=== PATIENT | female | born 1980 | race African-American/Black ===

== ENCOUNTER → 2017-07-04 | Outpatient (CLI) | payer OTHER ==
[2014-01-29 15:04] VITALS: BP 132/76
[~2017-07-04] MED LIST: HYDR-971 PO; LABE100T3 PO; NAPR500T4 PO
--- NOTE | 2017-07-04 15:46 | RAD ---
Clinical Indication: Discrepancy of uterine size and dates. Technique: Study is dated July 04, 2017. No comparison study is available. Transabdominal imaging was performed. Findings: There is a single intrauterine gestation in cephalic presentation. The placenta is anterior in location without evidence of placental previa. Cervix appears long and closed. RUTH ANN measured 11.3 cm. This value is within normal limits. Biometrical data is as follows: BPD = 7.33 cm, with a corresponding gestational age of 29 weeks 3 days. HC = 26.91 cm, with a corresponding gestational age of 29 weeks 2 days. AC = 27.52 cm, with a corresponding gestational age of 31 weeks 4 days. FL = 5.56 cm, with a corresponding gestational age of 29 weeks 2 days. Ratio of head circumference to abdominal circumference is 0.98. Cephalic index is 80 %. Overall, the estimated sonographic gestational age is 29 weeks 6 days for an estimated date of delivery of September 13, 2017. Patient states clinically they are 19 weeks 5 days. Estimated weight is 1580 g. survey was performed. A four chamber heart is identified with positive cardiac activity. The estimated heart rate is 145 beats per minute. There is a three-vessel cord with cord insertion visualized. stomach and urinary bladder are identified. Both kidneys are visualized. Evaluation of the spine, intracranial contents, and maxillofacial region is limited. Visualized portions are within normal limits. IMPRESSION: 1. Single intrauterine gestation with estimated sonographic gestational age of 29 weeks 6 days. 2. Limited evaluation of the intracranial contents, maxillofacial region, and spine. Short-term limited OB follow-up can be considered.
== END | disposition home or self-care (01) ==
LOC: US 13:46
PROVIDERS: ATTEND Obstetrics & Gynecology
DX: O26.843 Uterine size-date discrepancy, third trimester (principal); O09.523 Supervision of elderly multigravida, third trimester; Z3A.29 29 weeks gestation of pregnancy
CPT/HCPCS: 76805

== ENCOUNTER 2017-08-29 15:43 | Observation (INO) | payer OTHER ==
[2017-08-29] MEDS ORDERED: IV RINGERS,LACTATED 1000ML 1,000 ML IV ×2 (15:53)
[2017-08-29 16:18] LABS: POC GLUCOSE 105 mg/dL (70-99)
== END 2017-08-29 17:50 | disposition home or self-care (01) ==
LOC: 3 SO LND 15:43
PROVIDERS: Obstetrics & Gynecology
DX: Z34.93 Encounter for supervision of normal pregnancy, unspecified, third trimester (principal); Z3A.37 37 weeks gestation of pregnancy
CPT/HCPCS: 59025; 82962; G0378; G0379

== ENCOUNTER 2017-09-05 15:14 | Observation (INO) | payer OTHER ==
[2017-09-05 16:36] LABS: ADD MAN DIFF? NO
[2017-09-05 16:41] LABS: BASO % 1 % (0-3); EOS # 0.1 x10^3/uL (0.0-0.7); EOS % 2 % (0-3); HEMATOCRIT 37.8 % (36.0-47.0); HEMOGLOBIN 12.8 g/dL (12.0-15.5); LYMPH # 2.3 x10^3/uL (1.0-4.8); LYMPH % 29 % (24-48); MEAN CORPUSCULAR HEMOGLOBIN 30 pg (25-35); MEAN CORPUSCULAR HGB CONC 34 g/dL (31-37); MEAN CORPUSCULAR VOLUME 87 fL (79-100); MONO # 0.7 x10^3/uL (0.0-1.1); MONO % 8 % (0-9); NEUT # 4.9 x10^3uL (1.8-7.7); NEUT % 61 % (31-73); PLATELET COUNT 130 x10^3/uL (140-400); RED BLOOD COUNT 4.34 x10^6/uL (3.50-5.40); RED CELL DISTRIBUTION WIDTH 13.6 % (11.5-14.5); WHITE BLOOD COUNT 8.1 x10^3/uL (4.0-11.0)
[2017-09-05 17:41] LABS: ALBUMIN 2.1 g/dL (3.4-5.0); ALBUMIN/GLOBULIN RATIO 0.5 (1.0-1.7); ALK PHOS 113 U/L (46-116); ALT (SGPT) 17 U/L (14-59); ANION GAP 10 (6-14); AST (SGOT) 23 U/L (15-37); BLOOD UREA NITROGEN 11 mg/dL (7-20); BUN/CREATININE RATIO 16 (6-20); CALCIUM 8.8 mg/dL (8.5-10.1); CARBON DIOXIDE 22 mmol/L (21-32); CHLORIDE 106 mmol/L (98-107); CREATININE 0.7 mg/dL (0.6-1.0); GFR 113.3; GLUCOSE 118 mg/dL (70-99); POTASSIUM 3.3 mmol/L (3.5-5.1); SODIUM 138 mmol/L (136-145); TOTAL BILIRUBIN 0.2 mg/dL (0.2-1.0); TOTAL PROTEIN 6.4 g/dL (6.4-8.2)
== END 2017-09-05 18:30 | disposition home or self-care (01) ==
LOC: 3 SO LND 15:14
DX: Z34.93 Encounter for supervision of normal pregnancy, unspecified, third trimester (principal); Z3A.38 38 weeks gestation of pregnancy
CPT/HCPCS: 36415; 59025; 76815; 76819; 80053; 85025; G0378; G0379

== ENCOUNTER 2017-09-12 15:31 | Inpatient (IN) | payer OTHER ==
[2017-09-12 16:40] LABS: ADD MAN DIFF? NO
[2017-09-12 16:47] LABS: BASO % 0 % (0-3); EOS # 0.1 x10^3/uL (0.0-0.7); EOS % 1 % (0-3); HEMATOCRIT 39.8 % (36.0-47.0); HEMOGLOBIN 13.5 g/dL (12.0-15.5); LYMPH # 2.4 x10^3/uL (1.0-4.8); LYMPH % 30 % (24-48); MEAN CORPUSCULAR HEMOGLOBIN 29 pg (25-35); MEAN CORPUSCULAR HGB CONC 34 g/dL (31-37); MEAN CORPUSCULAR VOLUME 87 fL (79-100); MONO # 0.7 x10^3/uL (0.0-1.1); MONO % 9 % (0-9); NEUT # 4.8 x10^3uL (1.8-7.7); NEUT % 59 % (31-73); PLATELET COUNT 116 x10^3/uL (140-400); RED BLOOD COUNT 4.58 x10^6/uL (3.50-5.40); RED CELL DISTRIBUTION WIDTH 13.6 % (11.5-14.5); WHITE BLOOD COUNT 8.1 x10^3/uL (4.0-11.0)
[2017-09-12 17:06] LABS: ALBUMIN 2.4 g/dL (3.4-5.0); ALBUMIN/GLOBULIN RATIO 0.5 (1.0-1.7); ALK PHOS 132 U/L (46-116); ALT (SGPT) 60 U/L (14-59); ANION GAP 9 (6-14); AST (SGOT) 68 U/L (15-37); BLOOD UREA NITROGEN 12 mg/dL (7-20); BUN/CREATININE RATIO 20 (6-20); CALCIUM 9.2 mg/dL (8.5-10.1); CARBON DIOXIDE 23 mmol/L (21-32); CHLORIDE 104 mmol/L (98-107); CREATININE 0.6 mg/dL (0.6-1.0); GFR 135.4; GLUCOSE 69 mg/dL (70-99); POTASSIUM 4.2 mmol/L (3.5-5.1); SODIUM 136 mmol/L (136-145); TOTAL BILIRUBIN 0.4 mg/dL (0.2-1.0); TOTAL PROTEIN 7.1 g/dL (6.4-8.2)
[2017-09-12] MEDS ORDERED: fentaNYL PF VIAL 100 MCG/2 ML VIAL IV (19:15)
[2017-09-12] MEDS ORDERED: TERBUTALINE 1 MG/ML VIAL. SQ (19:15)
[2017-09-12] MEDS ORDERED: 0.9 % SODIUM CHLORIDE 10 ML DISP.SYRIN. IV (19:15)
[2017-09-12] MEDS ORDERED: ONDANSETRON PF 4 MG/2 ML VIAL. IV (19:15)
[2017-09-12] MEDS ORDERED: LIDOCAINE 1% PF 30 ML VIAL. INJ (19:15)
[2017-09-12] MEDS ORDERED: BUTORPHANOL 2 MG/ML VIAL. IV ×2 (19:15)
[2017-09-12] MEDS: IV RINGERS,LACTATED 1000ML 1,000 ML IV (19:24)
[2017-09-12] MEDS: PENICILLIN G K 5,000,000 UNIT in IV DEXTROSE 5% 100 ML IV (19:30)
[2017-09-12] MEDS: ACETAMINOPHEN 500 MG TABLET PO (22:49)
[2017-09-13] MEDS: IV RINGERS,LACTATED 1000ML 1,000 ML IV ×3 (07:16→19:11)
[2017-09-13] MEDS: OXYTOCIN 30 UNIT/500 ML PREMIX 500 ML IV ×2 (07:22→18:41)
[2017-09-13] MEDS: PENICILLIN G K 2,500,000 UNIT in IV DEXTROSE 5% 50 ML IV ×7 (07:30→23:30)
[2017-09-13] MEDS: fentaNYL PF VIAL 100 MCG/2 ML VIAL IV (15:53)
[2017-09-13] MEDS: CARBOPROST TROMETHAMINE 250 MCG/ML AMPUL IM (16:00)
[2017-09-13] MEDS: miSOPROStol 25 MCG TABLET VG (16:00)
[2017-09-13] MEDS: METHYLERGONOVINE MALEATE 0.2 MG/ML VIAL. IM (16:00)
[2017-09-13] MEDS: miSOPROStol 200MCG TAB 200 MCG TABLET PR (17:30)
[2017-09-13] MEDS ORDERED: MAG HYDROX/ALUMINUM HYD/SIMETH 30 ML ORAL.SUSP PO (18:15)
[2017-09-13] MEDS ORDERED: 0.9 % SODIUM CHLORIDE 10 ML DISP.SYRIN. IV (18:15)
[2017-09-13] MEDS ORDERED: ACETAMINOPHEN 325 MG TABLET. PO (18:15)
[2017-09-13] MEDS ORDERED: IBUPROFEN 800 MG TABLET. PO (18:15)
[2017-09-13] MEDS ORDERED: BENZOCAINE 20% TOPICAL AEROSOL SPRAY 57GM CAN. TP (18:15)
[2017-09-13] MEDS ORDERED: diphenhydrAMINE HCL 25 MG CAPSULE PO (18:15)
[2017-09-13] MEDS ORDERED: PHENYLEPH/MINERAL OIL/PETROLAT RECTAL OINTMENT 28GM TUBE. RC (18:15)
[2017-09-13] MEDS ORDERED: MAGNESIUM HYDROXIDE 2,400 MG/30 ML ORAL.SUSP. PO (18:15)
[2017-09-13] MEDS ORDERED: ZOLPIDEM 5 MG TABLET. PO (18:15)
[2017-09-13] MEDS ORDERED: SIMETHICONE 80 MG TAB.CHEW PO (18:15)
[2017-09-13] MEDS ORDERED: MMR per PROTOCOL. MC (18:15)
[2017-09-13] MEDS ORDERED: OXYTOCIN 30 UNIT/500 ML PREMIX 500 ML IV (18:15)
[2017-09-13] MEDS ORDERED: HYDROCORTISONE 1% TOPICAL OINTMENT 30GM TUBE. TP (18:15)
[2017-09-13] MEDS: IBUPROFEN 800 MG TABLET. PO (19:24)
[2017-09-14] MEDS: DOCUSATE SODIUM 100 MG CAPSULE. PO ×2 (00:12→08:11)
[2017-09-14] MEDS: oxyCODONE/APAP 5/325 1 TAB TABLET PO ×4 (00:14→18:31)
[2017-09-14 05:14] LABS: ADD MAN DIFF? NO
[2017-09-14 05:35] LABS: BASO % 0 % (0-3); EOS # 0.1 x10^3/uL (0.0-0.7); EOS % 1 % (0-3); HEMATOCRIT 38.7 % (36.0-47.0); HEMOGLOBIN 12.8 g/dL (12.0-15.5); LYMPH # 3.2 x10^3/uL (1.0-4.8); LYMPH % 21 % (24-48); MEAN CORPUSCULAR HEMOGLOBIN 29 pg (25-35); MEAN CORPUSCULAR HGB CONC 33 g/dL (31-37); MEAN CORPUSCULAR VOLUME 88 fL (79-100); MONO # 1.6 x10^3/uL (0.0-1.1); MONO % 11 % (0-9); NEUT # 10.1 x10^3uL (1.8-7.7); NEUT % 67 % (31-73); PLATELET COUNT 114 x10^3/uL (140-400); RED CELL DISTRIBUTION WIDTH 13.9 % (11.5-14.5); WHITE BLOOD COUNT 14.9 x10^3/uL (4.0-11.0)
[2017-09-14 06:20] LABS: RPR Non Reactive (Non Reactive)
[2017-09-14] MEDS: FERROUS SULFATE 325 MG TABLET. PO (08:00)
[2017-09-14] MEDS: IBUPROFEN 800 MG TABLET. PO ×2 (08:12→19:45)
[2017-09-14] MEDS: METHYLERGONOVINE MALEATE 0.2 MG TABLET PO ×2 (13:23→21:22)
[2017-09-14] MEDS: OXYTOCIN 30 UNIT/500 ML PREMIX 500 ML IV (14:09)
[2017-09-14] MEDS ORDERED: OXYTOCIN 30 UNIT/500 ML PREMIX 500 ML IV (14:15)
[2017-09-14 15:45] LABS: HEMATOCRIT 36.6 % (36.0-47.0); HEMOGLOBIN 12.1 g/dL (12.0-15.5); MEAN CORPUSCULAR HEMOGLOBIN 29 pg (25-35); MEAN CORPUSCULAR HGB CONC 33 g/dL (31-37); MEAN CORPUSCULAR VOLUME 87 fL (79-100); PLATELET COUNT 111 x10^3/uL (140-400); RED BLOOD COUNT 4.18 x10^6/uL (3.50-5.40); RED CELL DISTRIBUTION WIDTH 14.2 % (11.5-14.5); WHITE BLOOD COUNT 13.3 x10^3/uL (4.0-11.0)
[2017-09-15] MEDS: IBUPROFEN 800 MG TABLET. PO ×2 (04:41→14:47)
[2017-09-15] MEDS: METHYLERGONOVINE MALEATE 0.2 MG TABLET PO (10:00)
[2017-09-15] MEDS: DOCUSATE SODIUM 100 MG CAPSULE. PO (10:01)
== END 2017-09-15 18:04 | disposition home or self-care (01) | DRG 775 ==
LOC: 3 SO LND 15:31 → 3 NORTH 09-13 21:07
PROC: 10E0XZZ Delivery of Products of Conception, External Approach (ICD-10-PCS; principal; 2017-09-13)
PROC: 3E0P7VZ Introduction of Hormone into Female Reproductive, Via Natural or Artificial Opening (ICD-10-PCS; 2017-09-13)
DX: O13.4 Gestational [pregnancy-induced] hypertension without significant proteinuria, complicating childbirth (principal); O24.429 Gestational diabetes mellitus in childbirth, unspecified control; Z37.0 Single live birth; Z3A.40 40 weeks gestation of pregnancy
CPT/HCPCS: 36415; 76815; 80053; 85025; 85027; 86593; 86850; 86900; 86901; G0378; J2540; J2590; J3010; J7120

== ENCOUNTER 2017-11-24 12:52 | Emergency (ER) | payer OTHER | END 2017-11-24 13:51 | disposition home or self-care (01) | LOC: ER 12:52 | DX: B00.9 Herpesviral infection, unspecified (principal) | CPT/HCPCS: 99283 ==

== ENCOUNTER 2018-06-30 11:18 | Emergency (ER) | payer SELFPAY ==
[~2018-06-30] VITALS: Ht 152.4 cm; Wt 86.2 kg
[~2018-06-30 11:18] MED LIST changes: +ACYC5CRE2 TP; +HYDR-3164 PO; -HYDR-971 PO; +IBUP-1060 PO; -LABE100T3 PO; +LABE100T5 PO; +NAPR-514 PO; -NAPR500T4 PO; +VALA10005 PO
[2018-06-30 11:20] VITALS: BP 197/92
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
[2018-06-30] MEDS ORDERED: TRAM50TA PO (12:00)
[2018-06-30] MEDS ORDERED: METH-37 PO (12:00)
[2018-06-30] MEDS: NAPROXEN 500 MG TABLET PO STA (12:03)
[2018-06-30] MEDS: CYCLOBENZAPRINE 10 MG TABLET. PO ONE (12:03)
[2018-06-30] MEDS: HYDROcodone/APAP 5/325MG 1 TAB TABLET PO ONE (12:03)
== END 2018-06-30 12:35 | disposition home or self-care (01) ==
LOC: ER 11:18
DX: M54.5 Low back pain (principal); M79.10 Myalgia, unspecified site; G89.11 Acute pain due to trauma; V49.59XA Passenger injured in collision with other motor vehicles in traffic accident, initial encounter; Y92.488 Other paved roadways as the place of occurrence of the external cause; Y93.89 Activity, other specified; Y99.8 Other external cause status
CPT/HCPCS: 99284

== ENCOUNTER 2019-02-26 14:40 | Emergency (ER) | payer OTHER ==
[~2019-02-26] VITALS: Ht 160 cm; Wt 86.2 kg
[~2019-02-26 14:40] MED LIST changes: +METH-37 PO; +TRAM50TA PO
[2019-02-26 16:12] LABS: BASO # 0.1 x10^3/uL (0.0-0.2); BASO % 1 % (0-3); EOS % 0 % (0-3); HEMATOCRIT 38.6 % (36.0-47.0); HEMOGLOBIN 13.1 g/dL (12.0-15.5); LYMPH # 1.8 x10^3/uL (1.0-4.8); LYMPH % 19 % (24-48); MEAN CORPUSCULAR HEMOGLOBIN 28 pg (25-35); MEAN CORPUSCULAR HGB CONC 34 g/dL (31-37); MEAN CORPUSCULAR VOLUME 82 fL (79-100); MONO # 0.6 x10^3/uL (0.0-1.1); MONO % 7 % (0-9); NEUT # 7.3 x10^3/uL (1.8-7.7); NEUT % 74 % (31-73); PLATELET COUNT 191 x10^3/uL (140-400); RED CELL DISTRIBUTION WIDTH 13.7 % (11.5-14.5); WHITE BLOOD COUNT 9.9 x10^3/uL (4.0-11.0)
[2019-02-26 16:14] LABS: BILIRUBIN,URINE NEGATIVE (NEG); CLARITY,URINE CLEAR; COLOR,URINE YELLOW; NITRITE,URINE NEGATIVE (NEG); PROTEIN,URINE 30 mg/dL (NEG-TRACE); UROBILINOGEN,URINE 0.2 mg/dL (0.2 mg/dL)
[2019-02-26] MEDS ORDERED: ACETAMINOPHEN 325 MG TABLET. PO ONE (16:15)
[2019-02-26] MEDS ORDERED: IV NORMAL SALINE 1000ML BAG 1,000 ML IV ONE (16:15)
[2019-02-26 16:18] LABS: BACTERIA,URINE MODERATE /HPF (0-FEW); RBC,URINE 0 /HPF (0-2); SQUAMOUS EPITHELIAL CELL,UR MANY /LPF
[2019-02-26 16:34] LABS: CREATININE 0.8 mg/dL (0.6-1.0); GFR 96.6; POTASSIUM 3.6 mmol/L (3.5-5.1)
[2019-02-26 16:40] LABS: ALBUMIN 3.2 g/dL (3.4-5.0); DIRECT BILIRUBIN 0.1 mg/dL (0.0-0.2); TOTAL BILIRUBIN 0.3 mg/dL (0.2-1.0)
--- NOTE | 2019-02-26 17:38 | RAD ---
Obstetric pelvic ultrasound 02/26/2019 INDICATION: , pain. COMPARISON: Obstetric pelvic ultrasound September 12, 2017 TECHNIQUE: Sonographic evaluation of the pelvis was performed in transabdominal and transvaginal imaging. Grayscale, color Doppler and spectral waveform analysis were utilized. FINDINGS: The uterus measures 9.6 x 4.9 x 5.5 cm. A single intrauterine gestation is identified with a gestational sac and yolk sac. pole is not visualized. Mean sac diameter measures 0.58 cm compatible with a gestational age of 5 weeks 2 days. There is a small subchorionic hemorrhage measuring 1.2 x 0.8 x 1.7 cm. Right ovary measures 3.9 x 2.4 x 2.7 cm. Left ovary measures 2.8 x 1.7 x 2.0 cm. There is a 1.0 x 0.9 x 1.3 cm circumscribed peripherally hyperechoic, centrally anechoic cystic area suggestive of a corpus luteal cyst. Arterial and venous waveform identified bilaterally at the time of imaging. No free fluid within the cul-de-sac. IMPRESSION: 1. Single intrauterine gestation is identified with gestational sac compatible with gestational age of 5 weeks 2 days and sonographic EDC of 10/27/2019. Differential considerations include early versus failure versus ectopic . Recommend short-term follow-up pelvic ultrasound and beta-hCG to confirm viable . Next on 2. Small subchorionic hemorrhage. 3. Corpus luteal cyst is suspected in the left ovary measuring 1.0 x 0.9 x 1.3 cm. Electronically signed by: Johnna Singh MD (02/26/2019 5:35 PM) [facility]
[2019-02-26 17:57] VITALS: BP 125/71
--- NOTE | 2019-02-26 18:00 | PHYS DOC ---
Past Medical History Past Medical History: No Pertinent History Past Surgical History: No Surgical History Alcohol Use: None Drug Use: None Adult General Chief Complaint Chief Complaint: HEADACHE HPI HPI 38-year-old female presenting the emergency pertinent today with headache and a positive test and mild suprapubic abdominal pain that started last night. She denies any vaginal bleeding. Her last menstrual period was February 14. Her headache is a throbbing pain that was not a thunderclap headache. It was not sudden in onset. She denies neurologic changes. Her abdominal pain is not associated with vomiting. Review of systems is negative for neck stiffness or nuchal rigidity chest pain shortness of breath cough. She denies vomiting. All other review of systems is negative. ED course: 38-year-old female presenting with headache with abdominal pain. We treated her headache with Tylenol. Ultrasound shows possible intrauterine . I spoke with Dr. Hylton who recommends repeat Quant HCG and ultra sound. We will discharge the patient to follow-up with Dr. Hylton on Sunday in clinic for repeat quantitative hCG and a repeat ultrasound. Patient was then discharged home to return for worsening pain or worsening vaginal bleeding. Current Medications Current Medications Current Medications Medications (Trade) Dose Ordered Sig/Kimi Start Time Stop Time Status Last Admin Dose Admin Acetaminophen (Tylenol) 650 mg 1X ONCE 02/26/19 16:15 02/26/19 16:16 DC 02/26/19 16:10 650 MG Sodium Chloride 1,000 ml @ 1,000 mls/hr 1X ONCE 02/26/19 16:15 02/26/19 17:14 DC 02/26/19 16:10 1,000 MLS/HR Allergies Allergies Allergies Coded Allergies Type Severity Reaction Last Updated Verified No Known Drug Allergies 12/01/13 No Physical Exam Physical Exam Constitutional: Well developed, well nourished, no acute distress, non-toxic appearance. [] HENT: Normocephalic, atraumatic, bilateral external ears normal, oropharynx moist, no oral exudates, nose normal. [] Eyes: PERRLA, EOMI, conjunctiva normal, no discharge. [] Neck: Normal range of motion, no tenderness, supple, no stridor. [] Negative for neck stiffness. No nuchal rigidity. Negative Brudzinski's sign. Negative Kernig sign. Cardiovascular:Heart rate regular rhythm, no murmur [] Lungs & Thorax: Bilateral breath sounds clear to auscultation [] Abdomen: Bowel sounds normal, soft, no tenderness, no masses, no pulsatile masses. [] Negative McBurney's point. Skin: Warm, dry, no erythema, no rash. [] Back: No tenderness, no CVA tenderness. [] Extremities: No tenderness, no cyanosis, no clubbing, ROM intact, no edema. [] Neurologic: Alert and oriented X 3, normal motor function, normal sensory function, no focal deficits noted. [] Psychologic: Affect normal, judgement normal, mood normal. [] Current Patient Data Vital Signs Vital Signs Date Time Temp Pulse Resp B/P (MAP) Pulse Ox O2 Delivery O2 Flow Rate FiO2 02/26/19 15:00 100.2 99 16 150/88 (108) 99 Room Air 100.2 Lab Values Laboratory Tests Test 02/26/19 15:05 02/26/19 15:55 POC Urine HCG, Qualitative Hcg positive (Negative) White Blood Count 9.9 x10^3/uL (4.0-11.0) Red Blood Count 4.70 x10^6/uL (3.50-5.40) Hemoglobin 13.1 g/dL (12.0-15.5) Hematocrit 38.6 % (36.0-47.0) Mean Corpuscular Volume 82 fL (79-100) Mean Corpuscular Hemoglobin 28 pg (25-35) Mean Corpuscular Hemoglobin Concent 34 g/dL (31-37) Red Cell Distribution Width 13.7 % (11.5-14.5) Platelet Count 191 x10^3/uL (140-400) Neutrophils (%) (Auto) 74 % (31-73) H Lymphocytes (%) (Auto) 19 % (24-48) L Monocytes (%) (Auto) 7 % (0-9) Eosinophils (%) (Auto) 0 % (0-3) Basophils (%) (Auto) 1 % (0-3) Neutrophils # (Auto) 7.3 x10^3/uL (1.8-7.7) Lymphocytes # (Auto) 1.8 x10^3/uL (1.0-4.8) Monocytes # (Auto) 0.6 x10^3/uL (0.0-1.1) Eosinophils # (Auto) 0.0 x10^3/uL (0.0-0.7) Basophils # (Auto) 0.1 x10^3/uL (0.0-0.2) Urine Collection Type Unknown Urine Color Yellow Urine Clarity Clear Urine pH 6.0 Urine Specific [place] 1.015 Urine Protein 30 mg/dL (NEG-TRACE) Urine Glucose (UA) Negative mg/dL (NEG) Urine Ketones (Stick) Negative mg/dL (NEG) Urine Blood Negative (NEG) Urine Nitrite Negative (NEG) Urine Bilirubin Negative (NEG) Urine Urobilinogen Dipstick 0.2 mg/dL (0.2 mg/dL) Urine Leukocyte Esterase Trace (NEG) Urine RBC 0 /HPF (0-2) Urine WBC 1-4 /HPF (0-4) Urine Squamous Epithelial Cells Many /LPF Urine Bacteria Moderate /HPF (0-FEW) Maternal Serum HCG Beta Subunit 4025 mIU/mL (0-5) H Sodium Level 138 mmol/L (136-145) Potassium Level 3.6 mmol/L (3.5-5.1) Chloride Level 102 mmol/L (98-107) Carbon Dioxide Level 23 mmol/L (21-32) Anion Gap 13 (6-14) Blood Urea Nitrogen 10 mg/dL (7-20) Creatinine 0.8 mg/dL (0.6-1.0) Estimated GFR (Cockcroft-Gault) 96.6 Glucose Level 169 mg/dL (70-99) H Calcium Level 9.0 mg/dL (8.5-10.1) Total Bilirubin 0.3 mg/dL (0.2-1.0) Direct Bilirubin 0.1 mg/dL (0.0-0.2) Aspartate Amino Transferase (AST) 18 U/L (15-37) Alanine Aminotransferase (ALT) 19 U/L (14-59) Alkaline Phosphatase 54 U/L (46-116) Total Protein 8.0 g/dL (6.4-8.2) Albumin 3.2 g/dL (3.4-5.0) L Lipase 171 U/L (73-393) Laboratory Tests 02/26/19 15:55 Laboratory Tests 02/26/19 15:55 EKG EKG [] Radiology/Procedures Radiology/Procedures [] Course & Med Decision Making Course & Med Decision Making Pertinent Labs and Imaging studies reviewed. (See chart for details) [] Dragon Disclaimer Dragon Disclaimer This electronic medical record was generated, in whole or in part, using a voice recognition dictation system. Departure Departure Impression: Primary Impression: Headache Additional Impression: Abdominal pain Disposition: 01 HOME, SELF-CARE Condition: STABLE Referrals: GAIL AUGUSTE MD (PCP) REMY YEH MD sunday Patient Instructions: Abdominal Pain During Additional Instructions: Thank you for allowing us to participate in your care today. Return to the emergency department you have any new or worsening symptoms, or if you are concerned for any reason. Return to emergency department if you have any new or concerning symptoms including but not limited to fever, chills, nausea, vomiting, intractable pain, any new rashes, chest pain, shortness of air, uncontrolled bleeding, difficulty breathing, and/or vision loss. Follow up with Dr. Schroeder in clinic for repeat blood test and US. Call your Primary Doctor tomorrow and inform them of your visit today. If you do not have a primary care provider we are happy to provide you with a list of our primary care providers contact information. This condition should be evaluated by your primary care physician and any recommended consulting services for continued management within 2 days after discharge. If at any time, you are having difficulty getting into your primary care doctor or a specialist, return to the emergency department. Problem Qualifiers KEDAR HAWKINS MD Feb 26, 2019 18:00
== END 2019-02-26 18:10 | disposition home or self-care (01) ==
LOC: ER 14:40
DX: O26.891 Other specified pregnancy related conditions, first trimester (principal); R51 Headache; R10.30 Lower abdominal pain, unspecified; Z3A.01 Less than 8 weeks gestation of pregnancy
CPT/HCPCS: 36415; 76801; 76817; 80048; 80076; 81001; 81025; 83690; 84702; 85025; 87086; 99285; J7030

== ENCOUNTER 2019-04-21 21:14 | Emergency (ER) | payer OTHER ==
[~2019-04-21] VITALS: Ht 152.4 cm; Wt 90.7 kg
[2019-04-21 22:07] LABS: BILIRUBIN,URINE NEGATIVE (NEG); CLARITY,URINE CLEAR; COLOR,URINE YELLOW; NITRITE,URINE NEGATIVE (NEG); PH,URINE 5.5; PROTEIN,URINE NEGATIVE (NEG-TRACE); UROBILINOGEN,URINE 0.2 mg/dL (0.2 mg/dL)
--- NOTE | 2019-04-21 22:09 | PHYS DOC ---
Past Medical History Past Medical History: No Pertinent History Past Surgical History: No Surgical History Alcohol Use: None Drug Use: None Adult General Chief Complaint Chief Complaint: VAGINAL BLEEDING HPI HPI Patient is a 38 year old female 14, para 11 with 2 miscarriages presenting to the ED today with vaginal bleeding that began yesterday and has gotten progressively heavier today. She states she believes she is almost 12 weeks . She states yesterday she was spotting then today she has used to feminine pads in the last 24 hours. She is complaining of slight abdominal cramping. Denies any nausea, vomiting. She states she follows up with and has an appointment tomorrow morning. Review of Systems Review of Systems Constitutional: Denies fever or chills [] Eyes: Denies change in visual acuity, redness, or eye pain [] HENT: Denies nasal congestion or sore throat [] Respiratory: Denies cough or shortness of breath [] Cardiovascular: No additional information not addressed in HPI [] GI: Reports abdominal cramping with vaginal bleeding in . Nausea, vomiting, bloody stools or diarrhea [] : Denies dysuria or hematuria [] Musculoskeletal: Denies back pain or joint pain [] Integument: Denies rash or skin lesions [] Neurologic: Denies headache, focal weakness or sensory changes [] All other systems were reviewed and found to be within normal limits, except as documented in this note. Allergies Allergies Allergies Coded Allergies Type Severity Reaction Last Updated Verified No Known Drug Allergies 12/01/13 No Physical Exam Physical Exam Constitutional: Well developed, well nourished, no acute distress, non-toxic appearance. [] HENT: Normocephalic, atraumatic, bilateral external ears normal, oropharynx moist, no oral exudates, nose normal. [] Eyes: PERRLA, EOMI, conjunctiva normal, no discharge. [] Neck: Normal range of motion, no tenderness, supple, no stridor. [] Cardiovascular:Heart rate regular rhythm, no murmur [] Lungs & Thorax: Bilateral breath sounds clear to auscultation [] Abdomen: Bowel sounds normal, soft, no tenderness, no masses, no pulsatile masses. [] Pelvic exam External pelvic is normal, cervix not well visualized due to body habitus. Trace amount of bleeding noted in the vaginal vault. No CMT, no adnexal tenderness. Skin: Warm, dry, no erythema, no rash. [] Back: No tenderness, no CVA tenderness. [] Extremities: No tenderness, no cyanosis, no clubbing, ROM intact, no edema. [] Neurologic: Alert and oriented X 3, normal motor function, normal sensory function, no focal deficits noted. [] Psychologic: Affect normal, judgement normal, mood normal. [] Current Patient Data Vital Signs Vital Signs Date Time Temp Pulse Resp B/P (MAP) Pulse Ox O2 Delivery O2 Flow Rate FiO2 04/21/19 21:23 98.7 74 20 170/93 (118) 99 Room Air 98.7 Lab Values Laboratory Tests Test 04/21/19 21:25 04/21/19 21:34 04/21/19 22:20 Urine Color Yellow Urine Clarity Clear Urine pH 5.5 Urine Specific [place] 1.015 Urine Protein Negative mg/dL (NEG-TRACE) Urine Glucose (UA) Negative mg/dL (NEG) Urine Ketones (Stick) Negative mg/dL (NEG) Urine Blood Large (NEG) Urine Nitrite Negative (NEG) Urine Bilirubin Negative (NEG) Urine Urobilinogen Dipstick 0.2 mg/dL (0.2 mg/dL) Urine Leukocyte Esterase Small (NEG) Urine RBC Tntc /HPF (0-2) Urine WBC 5-10 /HPF (0-4) Urine Squamous Epithelial Cells Occ /LPF Urine Bacteria 0 /HPF (0-FEW) Urine Mucus Slight /LPF POC Urine HCG, Qualitative Hcg positive (Negative) White Blood Count 8.1 x10^3/uL (4.0-11.0) Red Blood Count 4.27 x10^6/uL (3.50-5.40) Hemoglobin 11.9 g/dL (12.0-15.5) L Hematocrit 35.7 % (36.0-47.0) L Mean Corpuscular Volume 84 fL (79-100) Mean Corpuscular Hemoglobin 28 pg (25-35) Mean Corpuscular Hemoglobin Concent 33 g/dL (31-37) Red Cell Distribution Width 13.9 % (11.5-14.5) Platelet Count 177 x10^3/uL (140-400) Neutrophils (%) (Auto) 51 % (31-73) Lymphocytes (%) (Auto) 36 % (24-48) Monocytes (%) (Auto) 8 % (0-9) Eosinophils (%) (Auto) 4 % (0-3) H Basophils (%) (Auto) 1 % (0-3) Neutrophils # (Auto) 4.2 x10^3/uL (1.8-7.7) Lymphocytes # (Auto) 2.9 x10^3/uL (1.0-4.8) Monocytes # (Auto) 0.7 x10^3/uL (0.0-1.1) Eosinophils # (Auto) 0.3 x10^3/uL (0.0-0.7) Basophils # (Auto) 0.1 x10^3/uL (0.0-0.2) Maternal Serum HCG Beta Subunit 2023 mIU/mL (0-5) H Sodium Level 141 mmol/L (136-145) Potassium Level 3.5 mmol/L (3.5-5.1) Chloride Level 105 mmol/L (98-107) Carbon Dioxide Level 26 mmol/L (21-32) Anion Gap 10 (6-14) Blood Urea Nitrogen 17 mg/dL (7-20) Creatinine 0.8 mg/dL (0.6-1.0) Estimated GFR (Cockcroft-Gault) 96.6 BUN/Creatinine Ratio 21 (6-20) H Glucose Level 138 mg/dL (70-99) H Calcium Level 8.8 mg/dL (8.5-10.1) Total Bilirubin 0.1 mg/dL (0.2-1.0) L Aspartate Amino Transferase (AST) 15 U/L (15-37) Alanine Aminotransferase (ALT) 16 U/L (14-59) Alkaline Phosphatase 45 U/L (46-116) L Total Protein 7.0 g/dL (6.4-8.2) Albumin 3.1 g/dL (3.4-5.0) L Albumin/Globulin Ratio 0.8 (1.0-1.7) L Laboratory Tests 04/21/19 22:20 Laboratory Tests 04/21/19 22:20 EKG EKG [] Radiology/Procedures Radiology/Procedures []PROCEDURE: OB TRANSVAG Exam: Ultrasound pelvis Indication: Vaginal bleeding in Technique: Real-time grayscale and color Doppler images of the pelvis were obtained by the department chocolate finisher operator. Comparisons: 02/26/2019 FINDINGS: Uterus measures 10.6 x 5.1 x 6.2 cm. Within the uterus there is a gestational sac with a mean sac diameter of 22 mm. No pole is identified. Possible yolk sac is seen. Left ovary measures 1.3 x 3.4 x 1.4 cm. Right ovary measures 1.9 x 2.6 x 2.2 cm Ovaries demonstrate vascular flow. IMPRESSION: Gestational sac within the endometrium without pole identified. Findings may relate to either early IUP or failed IUP. Correlation with serial beta hCGs and a short-term follow-up in 10 days is recommended to rule out failed . Electronically signed by: Koko Clemons MD (04/21/2019 11:03 PM) [facility] DICTATED and SIGNED BY: KOKO CLEMONS MD DATE: 04/21/19 8573 Course & Med Decision Making Course & Med Decision Making Pertinent Labs and Imaging studies reviewed. (See chart for details) This is a 38-year-old female patient 14, para 11 2 miscarriages presenting to the ED today complaining of vaginal bleeding in that began yesterday and has progressively gotten heavier today. She states she has used to feminine pads in the last 24 hours. She believes she is 12 weeks . Blood group from the previous charts is noted as AB+ Urine noted for UTI, discharged on cephalexin CBC with a normal WBC, hemoglobin 11.9, hematocrit 35.7. CMP with no acute findings, beta hCG 3 this is lower from patient's visit on 02/26/2019 where it was noted as 4025 OB ultrasound noted for IUP without pole identified. Findings may relate to either early IUP or failed IUP. Correlation with serial beta hCGs and a short-term follow-up in 10 days is recommended to rule out failed . Patient has an appointment with tomorrow. She was provided instructions for pelvic rest. She is provided return precautions and discharged in stable condition. Dragon Disclaimer Dragon Disclaimer This electronic medical record was generated, in whole or in part, using a voice recognition dictation system. Departure Departure Impression: Primary Impression: Threatened miscarriage Additional Impression: Urinary tract infection during Disposition: 01 HOME, SELF-CARE Condition: STABLE Referrals: NO PCP (PCP) NITISH AMANDA Jr, MD follow up tomorrow as scheduled Patient Instructions: - Urinary Tract Infection, Threatened Miscarriage, [id number] Additional Instructions: You were seen for vaginal bleeding in . There is concerned you could be having a miscarriage. Please follow-up with your DOCTOR OF [facility] tomorrow as scheduled. Please come back to the ED at any point to start soaking more than 1 feminine pad an hour. Complete the prescribed antibiotics for UTI. Please maintain pelvic rest this includes no sex, no strenuous activity. Scripts Cephalexin (CEPHALEXIN) 500 Mg Tablet 1 TAB PO BID, #14 TAB Prov: JULY LR APRN 04/21/19 Problem Qualifiers Additional Impression: Urinary tract infection during Trimester: first trimester Qualified Codes: O23.41 - Unspecified infection of urinary tract in , first trimester JULY LR APRN Apr 21, 2019 22:09
[2019-04-21 22:22] LABS: BACTERIA,URINE 0 /HPF (0-FEW); RBC,URINE TNTC /HPF (0-2); SQUAMOUS EPITHELIAL CELL,UR OCC /LPF
[2019-04-21 22:30] LABS: BASO # 0.1 x10^3/uL (0.0-0.2); BASO % 1 % (0-3); EOS # 0.3 x10^3/uL (0.0-0.7); EOS % 4 % (0-3); HEMATOCRIT 35.7 % (36.0-47.0); HEMOGLOBIN 11.9 g/dL (12.0-15.5); LYMPH # 2.9 x10^3/uL (1.0-4.8); LYMPH % 36 % (24-48); MEAN CORPUSCULAR HEMOGLOBIN 28 pg (25-35); MEAN CORPUSCULAR HGB CONC 33 g/dL (31-37); MEAN CORPUSCULAR VOLUME 84 fL (79-100); MONO # 0.7 x10^3/uL (0.0-1.1); MONO % 8 % (0-9); NEUT # 4.2 x10^3/uL (1.8-7.7); NEUT % 51 % (31-73); PLATELET COUNT 177 x10^3/uL (140-400); RED BLOOD COUNT 4.27 x10^6/uL (3.50-5.40); RED CELL DISTRIBUTION WIDTH 13.9 % (11.5-14.5); WHITE BLOOD COUNT 8.1 x10^3/uL (4.0-11.0)
[2019-04-21 22:43] LABS: CALCIUM 8.8 mg/dL (8.5-10.1); CREATININE 0.8 mg/dL (0.6-1.0); GFR 96.6; POTASSIUM 3.5 mmol/L (3.5-5.1)
[2019-04-21 22:48] LABS: ALBUMIN 3.1 g/dL (3.4-5.0); ALBUMIN/GLOBULIN RATIO 0.8 (1.0-1.7); TOTAL BILIRUBIN 0.1 mg/dL (0.2-1.0)
[2019-04-21 23:00] VITALS: BP 151/73
--- NOTE | 2019-04-21 23:06 | RAD ---
Exam: Ultrasound pelvis Indication: Vaginal bleeding in Technique: Real-time grayscale and color Doppler images of the pelvis were obtained by the department newborn photographer. Comparisons: 02/26/2019 FINDINGS: Uterus measures 10.6 x 5.1 x 6.2 cm. Within the uterus there is a gestational sac with a mean sac diameter of 22 mm. No pole is identified. Possible yolk sac is seen. Left ovary measures 1.3 x 3.4 x 1.4 cm. Right ovary measures 1.9 x 2.6 x 2.2 cm Ovaries demonstrate vascular flow. IMPRESSION: Gestational sac within the endometrium without pole identified. Findings may relate to either early IUP or failed IUP. Correlation with serial beta hCGs and a short-term follow-up in 10 days is recommended to rule out failed . Electronically signed by: Ruddy Shah MD (04/21/2019 11:03 PM) [facility]
[2019-04-21] MEDS ORDERED: CEPH500T PO (23:22)
== END 2019-04-21 23:25 | disposition home or self-care (01) ==
LOC: ER 21:14
DX: O20.0 Threatened abortion (principal); O23.41 Unspecified infection of urinary tract in pregnancy, first trimester; O21.8 Other vomiting complicating pregnancy; K92.1 Melena; Z3A.12 12 weeks gestation of pregnancy
CPT/HCPCS: 36415; 76817; 80053; 81001; 81025; 84702; 85025; 87086; 99285

== ENCOUNTER 2019-07-16 16:06 | Emergency (ER) | payer OTHER ==
[~2019-07-16] VITALS: Ht 152.4 cm; Wt 88.5 kg
[~2019-07-16 16:06] MED LIST changes: +CEPH500T PO
[2019-07-16] MEDS ORDERED: OXYM30SP25 NS (16:51)
[2019-07-16] MEDS ORDERED: NAPR-683 PO (16:51)
[2019-07-16] MEDS ORDERED: AZIT250T PO (16:51)
--- NOTE | 2019-07-16 16:51 | PHYS DOC ---
Past Medical History Past Medical History: Migraines Past Surgical History: No Surgical History Alcohol Use: None Drug Use: None Adult General Chief Complaint Chief Complaint: HEADACHE [facility] HPI Patient is a 38 year old non-Japanese speaking female patient with history of migraine headache who presents with complaint of headache. Patient complaining of frontal headache since yesterday as a constant and sharp pain without nausea and vomiting, photophobia, fever and chills, focal neuro deficit. Patient complaining of pressure feeling in her face and rated her pain 6 or 7/10. Patient took Tylenol with the last one last night without improvement of her pain. Patient denies and breast-feeding. Review of Systems Review of Systems Constitutional: Denies fever or chills [] Eyes: Denies change in visual acuity, redness, or eye pain [] HENT: Denies nasal congestion or sore throat [] Respiratory: Denies cough or shortness of breath [] Cardiovascular: No additional information not addressed in HPI [] GI: Denies abdominal pain, nausea, vomiting, bloody stools or diarrhea [] : Denies dysuria or hematuria [] Musculoskeletal: Denies back pain or joint pain [] Integument: Denies rash or skin lesions [] Neurologic: Denies focal weakness or sensory changes reports headache.[] Endocrine: Denies polyuria or polydipsia [] All other systems were reviewed and found to be within normal limits, except as documented in this note. Allergies Allergies Allergies Coded Allergies Type Severity Reaction Last Updated Verified No Known Drug Allergies 12/01/13 No Physical Exam Physical Exam Constitutional: Well developed, well nourished, no acute distress, non-toxic appearance. [] HENT: Normocephalic, atraumatic, bilateral external ears normal, oropharynx moist, no oral exudates, nose normal. [] Eyes: PERRLA, EOMI, conjunctiva normal, no discharge. [] Neck: Normal range of motion, no tenderness, supple, no stridor. [] Cardiovascular:Heart rate regular rhythm, no murmur [] Lungs & Thorax: Bilateral breath sounds clear to auscultation [] Abdomen: Bowel sounds normal, soft, no tenderness, no masses, no pulsatile masses. [] Skin: Warm, dry, no erythema, no rash. [] Back: No tenderness, no CVA tenderness. [] Extremities: No tenderness, no cyanosis, no clubbing, ROM intact, no edema. [] Neurologic: Alert and oriented X 3, normal motor function, normal sensory function, no focal deficits noted. [] Psychologic: Affect normal, judgement normal, mood normal. [] Current Patient Data Vital Signs Vital Signs Date Time Temp Pulse Resp B/P (MAP) Pulse Ox O2 Delivery O2 Flow Rate FiO2 07/16/19 17:00 93 14 98 07/16/19 16:11 98.9 157/98 (117) Room Air 98.9 Lab Values Laboratory Tests Test 07/16/19 16:18 POC Urine HCG, Qualitative Hcg negative (Negative) EKG EKG [] Radiology/Procedures Radiology/Procedures [] Course & Med Decision Making Course & Med Decision Making Evaluation of patient in ER showed 28-year-old female patient with complaining of headache since yesterday. Patient treated with intranasal lidocaine with improvement of her pain. Patient had sinus tenderness and prescription for antibiotic was given. discharge: I've spoken with the patient and/or caregivers. I've explained the patient's condition, diagnosis and treatment plan based on information available to me at this time. I've answered the patient's and/or caregivers questions and addressed any concerns. The patient and/or caregivers have a good understanding the patient's diagnosis, condition and treatment plan as can be expected at this point. Vital signs have been stabilized. The patient's condition is stable for discharge from the emergency department. The patient will pursue further outpatient evaluation with her primary care provider or other designated consulting physician as outlined in the discharge instructions. Patient and/or caregivers are agreeable to this plan of care and follow-up instructions have been explained in detail. The patient and/or caregivers have received these instructions in written format and expressed understanding of these discharge instructions. The patient and her caregivers are aware that if any significant change in condition or worsening of symptoms should prompt him to immediately return to this of the closest emergency department. If an emergent department is not readily available I would encourage him to call 911. Rafiq Disclaimer Rafiq Disclaimer This electronic medical record was generated, in whole or in part, using a voice recognition dictation system. Departure Departure Impression: Primary Impression: Sinusitis Additional Impression: Headache Disposition: HOME, SELF-CARE (at 1649) Condition: IMPROVED Referrals: NO PCP (PCP) Patient Instructions: Migraine Headache, Sinusitis Additional Instructions: Drink plenty of liquids Follow-up with your primary care physician in 3-5 days Return to ER if not getting better Thank you for visiting [facility]. We appreciate you trusting us with your care. If any additional problems come up don't hesitate to return to visit us. Please follow up with your primary care provider so they can plan additional care if needed and know about the problem that you had. If symptoms worsen come back to the Emergency Department. Any concerning symptoms that start such as chest pain, shortness of air, weakness or numbness on one side of the body, running high fevers or any other concerning symptoms return to the ER. Scripts Azithromycin (ZITHROMAX) 250 Mg Tablet 250 MG PO as directed for ANTI-BIOTIC, #6 TAB 0 Refills Take 2 PO x 1 days Then take 1 PO q 24 hour for the next 4 days Prov: DAYDAY MONTEIRO MD 07/16/19 Naproxen (NAPROSYN) 500 Mg Tablet 1 TAB PO BID for pain, #20 TAB Prov: DAYDAY MONTEIRO MD 07/16/19 Oxymetazoline Hcl (AFRIN) 30 Ml [employer] 2 SPR NS QID for nasal congestion, #1 SPRAY Prov: DAYDAY MONTEIRO MD 07/16/19 Problem Qualifiers Primary Impression: Sinusitis Sinusitis location: frontal Chronicity: acute Recurrence: not specified as recurrent Qualified Codes: J01.10 - Acute frontal sinusitis, unspecified Additional Impression: Headache Headache type: unspecified Headache chronicity pattern: unspecified pattern Intractability: not intractable Qualified Codes: R51 - Headache DAYDAY MONTEIRO MD Jul 16, 2019 16:51
[2019-07-16 17:00] VITALS: BP 141/70
== END 2019-07-16 17:02 | disposition home or self-care (01) ==
LOC: ER 16:06
DX: J01.10 Acute frontal sinusitis, unspecified (principal); G43.909 Migraine, unspecified, not intractable, without status migrainosus
CPT/HCPCS: 81025; 99283

== ENCOUNTER 2020-04-11 11:39 | Emergency (ER) | payer OTHER ==
[~2020-04-11] VITALS: Ht 152.4 cm; Wt 59.0 kg
[~2020-04-11 11:39] MED LIST changes: +AZIT250T PO; +NAPR-683 PO; +OXYM30SP25 NS
--- NOTE | 2020-04-11 12:28 | PHYS DOC ---
Past Medical History Past Medical History: Migraines Past Surgical History: No Surgical History Smoking Status: Never Smoker Alcohol Use: None Drug Use: None General Adult EDM: Chief Complaint: DIZZY/LIGHT HEADED HPI: HPI: The history was obtained from the patient. Patient is a 39-year-old female with no reported PMH who presents with a chief complaint of dizziness. Patient states she has had dizziness for the past several days. States she feels as though the room is spinning and slightly lightheaded. States it is worse when she tries to ambulate or move her head. Does note nausea without vomiting. Denies headache. Denies acute vision or hearing changes. Denies ringing in the ears. Denies chest pain or shortness of breath. States that she has not tried any medication to help. Denies any aspirin usage. Denies weakness in one extremity compared to the other. 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 States this is never happened before. Denies any recent air travel or scuba diving. Denies any recent upper respiratory infections. No other complaints. Review of Systems: Review of Systems: Constitutional: Denies fever or chills. [] Eyes: Denies change in visual acuity. [] HENT: Denies nasal congestion or sore throat. [] Respiratory: Denies cough or shortness of breath. [] Cardiovascular: Denies chest pain or edema. [] GI: Denies abdominal pain, nausea, vomiting, bloody stools or diarrhea. [] : Denies dysuria. [] Musculoskeletal: Denies back pain or joint pain. [] Integument: Denies rash. [] Neurologic: Positive for dizziness Endocrine: Denies polyuria or polydipsia. [] Lymphatic: Denies swollen glands. [] Psychiatric: Denies depression or anxiety. [] Heart Score: Risk Factors: Risk Factors: DM, Current or recent (<one month) smoker, HTN, HLP, family history of CAD, obesity. Risk Scores: Score 0 - 3: 2.5% MACE over next 6 weeks - Discharge Home Score 4 - 6: 20.3% MACE over next 6 weeks - Admit for Clinical Observation Score 7 - 10: 72.7% MACE over next 6 weeks - Early Invasive Strategies Allergies: Allergies: Allergies Coded Allergies Type Severity Reaction Last Updated Verified No Known Drug Allergies 12/01/13 No Physical Exam: PE: Constitutional: Well developed, well nourished, no acute distress, non-toxic appearance. [] HENT: Normocephalic, atraumatic, bilateral external ears normal, oropharynx moist, no oral exudates, nose normal. [] Eyes: PERRLA, EOMI, conjunctiva normal, no discharge. [] Neck: Normal range of motion, no tenderness, supple, no stridor. [] Cardiovascular:Heart rate regular rhythm, no murmur [] Lungs & Thorax: Bilateral breath sounds clear to auscultation [] Abdomen: Bowel sounds normal, soft, no tenderness, no masses, no pulsatile masses. [] Skin: Warm, dry, no erythema, no rash. [] Back: No tenderness, no CVA tenderness. [] Extremities: No tenderness, no cyanosis, no clubbing, ROM intact, no edema. [] Neurologic: Alert with intact cognitive function. No aphasia, dysarthria, or neglect. GCS 15. Pupils 3 mm briskly reactive b/l. No APD present. Cranial nerves 2-12 grossly intact; no facial asymmetry present, tongue midline, shoulder shrugging strength intact. Strength 5/5 and symmetric throughout. Light touch sensation intact throughout. Cerebellar testing appropriate without evidence of dysdiadochokinesia. DTR's 2+ in all 4 extremities. Negative pronator drift bilaterally. Gait normal Psychologic: Affect normal, judgement normal, mood normal. [] Current Patient Data: Labs: Laboratory Tests Test 04/11/20 12:40 04/11/20 12:56 04/11/20 13:06 White Blood Count 7.5 x10^3/uL Red Blood Count 5.16 x10^6/uL Hemoglobin 14.3 g/dL Hematocrit 42.6 % Mean Corpuscular Volume 83 fL Mean Corpuscular Hemoglobin 28 pg Mean Corpuscular Hemoglobin Concent 34 g/dL Red Cell Distribution Width 14.4 % Platelet Count 178 x10^3/uL Neutrophils (%) (Auto) 64 % Lymphocytes (%) (Auto) 27 % Monocytes (%) (Auto) 9 % Eosinophils (%) (Auto) 0 % Basophils (%) (Auto) 0 % Neutrophils # (Auto) 4.8 x10^3/uL Lymphocytes # (Auto) 2.0 x10^3/uL Monocytes # (Auto) 0.7 x10^3/uL Eosinophils # (Auto) 0.0 x10^3/uL Basophils # (Auto) 0.0 x10^3/uL Sodium Level 142 mmol/L Potassium Level 4.1 mmol/L Chloride Level 104 mmol/L Carbon Dioxide Level 17 mmol/L Anion Gap 21 Blood Urea Nitrogen 12 mg/dL Creatinine 0.8 mg/dL Estimated GFR (Cockcroft-Gault) 79.4 Glucose Level 394 mg/dL Calcium Level 9.8 mg/dL Troponin I Quantitative < 0.017 ng/mL Urine Collection Type Void Urine Color Yellow Urine Clarity Clear Urine pH 5.0 Urine Specific Ross >=1.030 Urine Protein 30 mg/dL Urine Glucose (UA) >=1000 mg/dL Urine Ketones (Stick) >=80 mg/dL Urine Blood Negative Urine Nitrite Negative Urine Bilirubin Negative Urine Urobilinogen Dipstick 0.2 mg/dL Urine Leukocyte Esterase Trace Urine RBC Occ /HPF Urine WBC 5-10 /HPF Urine Squamous Epithelial Cells Many /LPF Urine Bacteria Many /HPF Urine Mucus Marked /LPF Urine Yeast Present /HPF Bedside Urine HCG, Qualitative Hcg negative Current Medications Medications (Trade) Dose Ordered Sig/Kimi Route PRN Reason Start Time Stop Time Status Last Admin Dose Admin Sodium Chloride 1,000 ml @ 1,000 mls/hr 1X ONCE IV 04/11/20 12:30 04/11/20 13:29 DC 04/11/20 12:54 Vital Signs: Vital Signs Date Time Temp Pulse Resp B/P (MAP) Pulse Ox O2 Delivery O2 Flow Rate FiO2 04/11/20 12:08 98.1 102 17 157/95 (115) 100 Room Air 98.1 EKG: EKG: EKG consistent with normal sinus rhythm. Ventricular rate of 83 beats minute. Dorset normal. Intervals normal. No acute ischemic changes noted. Otherwise normal EKG. [] Radiology/Procedures: Radiology/Procedures: [facility] [address] [place] [address] IMAGING REPORT Signed PATIENT: BRITTANI MCNEILL ACCOUNT: [id number] : 1980 LOCATION: ER AGE: 39 SEX: F EXAM STATUS: PRE ER ORD. PHYSICIAN: HUANG CUNNINGHAM DO REASON: dizzy, soa PROCEDURE: CHEST AP ONLY CHEST AP ONLY Clinical indications: Dizzy. Shortness of air. Findings: No acute lung infiltrate or pleural effusion or pulmonary edema or lung mass or pneumothorax is seen. The heart size, pulmonary vasculature, mediastinum and both patricio are unremarkable. Impression: No acute radiographic abnormality is seen. Electronically signed by: Romel Pierce MD (04/11/2020 1:22 PM) [id number] DICTATED and SIGNED BY: ROMEL PIERCE MD DATE: 04/11/20 1322 [facility] [address] [place] [address] IMAGING REPORT Signed PATIENT: BRITTANI MCNEILL ACCOUNT: [id number] : 1980 LOCATION: ER AGE: 39 SEX: F EXAM STATUS: PRE ER ORD. PHYSICIAN: HUANG CUNNINGHAM DO REASON: dizziness PROCEDURE: CT HEAD WO CONTRAST EXAM: CT Head without IV contrast INDICATION: Reason: dizziness / Spl. Instructions: / History: TECHNIQUE: Multi-detector row CT images were obtained of the head without the use of IV contrast. All CT scans performed at this facility utilize dose optimization techniques as appropriate to the exam, including the following: Automated exposure control and adjustment of the mA and/or KV according to patient size (this includes techniques or standardized protocols for targeted exams where dose is indication/reason for exam). COMPARISON: None FINDINGS: BRAIN PARENCHYMA: No evidence of acute intraparenchymal hemorrhage or infarct. There is mild scattered white matter low density more conspicuous in the left frontal smith radiata is nonspecific.. VENTRICLES & EXTRA-AXIAL SPACES: Ventricles are within normal limits. Basilar cisterns are patent. No pathologic extra-axial fluid collection or mass. ORBITS: Orbital contents are unremarkable. SINUSES: Visualized paranasal sinuses and mastoid air cells are clear. OSSEOUS & SOFT TISSUES: Calvarium and skull base are intact. IMPRESSION: No acute infarct, hemorrhage or mass effect. Evidence of mild white matter disease that is nonspecific. This could represent sequelae of chronic ischemic microvascular disease as may be seen with hypertension. Correlate clinically and consider MRI if further evaluation is indicated. Electronically signed by: Bonita Rizo MD (04/11/2020 1:39 PM) [facility] DICTATED and SIGNED BY: BONITA RIZO MD DATE: 04/11/20 4365 [] Course & Med Decision Making: Course & Med Decision Making Pertinent Labs and Imaging studies reviewed. (See chart for details) [Patient is a well-appearing 39-year-old female presents with chief complaint of dizziness over the past several days. Initial vital signs unremarkable. Physical exam overall reassuring. No focal neurologic deficits appreciated. CT head imaging was obtained however it shows no acute abnormality. Basic labs were obtained and did reveal hyperglycemia without signs of DKA. This could be the reason for her symptoms. Overall have low suspicion for central cause of her symptoms. EKG is been reassuring. Remainder of labs been reassuring. At this time I do feel the patient is appropriate for discharge home with symptomatic care. She was instructed to follow-up with her primary care physician. Return precautions discussed and understood. Stable for discharge home. Dragon Disclaimer: Rafiq Disclaimer: This electronic medical record was generated, in whole or in part, using a voice recognition dictation system. Departure Departure Impression: Primary Impression: Dizziness Additional Impression: Hyperglycemia Disposition: 01 HOME, SELF-CARE Condition: STABLE Referrals: NO PCP (PCP) Patient Instructions: Dizziness, Hyperglycemia Additional Instructions: Please follow-up with your primary care physician in the next 2 to 3 days. [facility] [address] [place] [address] [facility] [address] [place] [address] [facility] [address] [facility] [place] [address] [facility] [address] [place] [address] [facility] [address] [place] [address] [facility] [address] [place] [address] [facility] [address] [place] [address] [facility] [address] [place] [address] Formerly [facility] [address] [place] [address] [facility] [address] [place] [address] Scripts Meclizine Hcl (MECLIZINE HCL) 25 Mg Tablet 1 TAB PO PRN TID, #12 TAB Prov: HUANG CUNNINGHAM DO 04/11/20 Ondansetron Hcl (ZOFRAN) 4 Mg Tablet 4 MG PO PRN TID PRN for NAUSEA, #9 nausea/vomiting Prov: HUANG CUNNINGHAM DO 04/11/20 Justicifation of Admission Dx: Justifications for Admission: Justification of Admission Dx: N/A HUANG CUNNINGHAM DO Apr 11, 2020 12:28
[2020-04-11] MEDS ORDERED: IV NORMAL SALINE 1000ML BAG 1,000 ML IV ONE (12:30)
[2020-04-11 12:52] LABS: BASO % 0 % (0-3); EOS % 0 % (0-3); HEMATOCRIT 42.6 % (36.0-47.0); HEMOGLOBIN 14.3 g/dL (12.0-15.5); LYMPH % 27 % (24-48); MEAN CORPUSCULAR HEMOGLOBIN 28 pg (25-35); MEAN CORPUSCULAR HGB CONC 34 g/dL (31-37); MEAN CORPUSCULAR VOLUME 83 fL (79-100); MONO # 0.7 x10^3/uL (0.0-1.1); MONO % 9 % (0-9); NEUT # 4.8 x10^3/uL (1.8-7.7); NEUT % 64 % (31-73); PLATELET COUNT 178 x10^3/uL (140-400); RED BLOOD COUNT 5.16 x10^6/uL (3.50-5.40); RED CELL DISTRIBUTION WIDTH 14.4 % (11.5-14.5); WHITE BLOOD COUNT 7.5 x10^3/uL (4.0-11.0)
[2020-04-11 12:57] VITALS: BP 162/75
[2020-04-11 12:59] LABS: CALCIUM 9.8 mg/dL (8.5-10.1); CREATININE 0.8 mg/dL (0.6-1.0); GFR 79.4; POTASSIUM 4.1 mmol/L (3.5-5.1)
[2020-04-11 13:11] LABS: BILIRUBIN,URINE NEGATIVE (NEG); CLARITY,URINE CLEAR; COLOR,URINE YELLOW; NITRITE,URINE NEGATIVE (NEG); PROTEIN,URINE 30 mg/dL (NEG-TRACE); UROBILINOGEN,URINE 0.2 mg/dL (0.2 mg/dL)
--- NOTE | 2020-04-11 13:25 | RAD ---
CHEST AP ONLY Clinical indications: Dizzy. Shortness of air. Findings: No acute lung infiltrate or pleural effusion or pulmonary edema or lung mass or pneumothorax is seen. The heart size, pulmonary vasculature, mediastinum and both patricio are unremarkable. Impression: No acute radiographic abnormality is seen. Electronically signed by: Venu Pierce MD (04/11/2020 1:22 PM) [id number]
[2020-04-11 13:32] LABS: BACTERIA,URINE MANY /HPF (0-FEW); SQUAMOUS EPITHELIAL CELL,UR MANY /LPF
[2020-04-11 13:33] LABS: RBC,URINE OCC /HPF (0-2); YEAST,URINE PRESENT /HPF
--- NOTE | 2020-04-11 13:42 | RAD ---
EXAM: CT Head without IV contrast INDICATION: Reason: dizziness / Spl. Instructions: / History: TECHNIQUE: Multi-detector row CT images were obtained of the head without the use of IV contrast. All CT scans performed at this facility utilize dose optimization techniques as appropriate to the exam, including the following: Automated exposure control and adjustment of the mA and/or KV according to patient size (this includes techniques or standardized protocols for targeted exams where dose is indication/reason for exam). COMPARISON: None FINDINGS: BRAIN PARENCHYMA: No evidence of acute intraparenchymal hemorrhage or infarct. There is mild scattered white matter low density more conspicuous in the left frontal smith radiata is nonspecific.. VENTRICLES & EXTRA-AXIAL SPACES: Ventricles are within normal limits. Basilar cisterns are patent. No pathologic extra-axial fluid collection or mass. ORBITS: Orbital contents are unremarkable. SINUSES: Visualized paranasal sinuses and mastoid air cells are clear. OSSEOUS & SOFT TISSUES: Calvarium and skull base are intact. IMPRESSION: No acute infarct, hemorrhage or mass effect. Evidence of mild white matter disease that is nonspecific. This could represent sequelae of chronic ischemic microvascular disease as may be seen with hypertension. Correlate clinically and consider MRI if further evaluation is indicated. Electronically signed by: Katey Malone MD (04/11/2020 1:39 PM) [facility]
[2020-04-11] MEDS ORDERED: ONDA4TAB7 PO (14:04)
[2020-04-11] MEDS ORDERED: MECL-75 PO (14:04)
--- NOTE | 2020-04-12 08:18 | EKG ---
[facility] [address] [place] [address] Test Date: 2020-04-11 Test Time: 13:09:13 Pat Name: BRITTANI MCNEILL Department: Room: Gender: F Service Tech/Welder: : 1980 Requested By: HUANG CUNNINGHAM Order Number: [id number] Reading MD: Measurements Intervals Erving Rate: 83 P: 39 NM: 168 QRS: 38 QRSD: 86 T: 42 QT: 364 QTc: 428 Interpretive Statements SINUS RHYTHM OTHERWISE NORMAL ECG RI6.02 No previous ECG available for comparison
== END 2020-04-11 15:09 | disposition home or self-care (01) ==
LOC: ER 11:39
DX: R42 Dizziness and giddiness (principal); R73.9 Hyperglycemia, unspecified; R11.0 Nausea; R20.2 Paresthesia of skin; G43.909 Migraine, unspecified, not intractable, without status migrainosus
CPT/HCPCS: 36415; 70450; 71045; 80048; 81001; 81025; 84484; 85025; 87086; 93005; 96360; 99285; J7030